=== PATIENT | female | born 1960 | race Caucasian/White ===

== ENCOUNTER 2016-08-20 11:31 | Day surgery (SDC) | payer BC ==
[~2016-08-20] VITALS: Ht 170.2 cm; Wt 154.5 kg
[~2016-08-20 11:31] MED LIST: BIOTIN1000 MCG PO; EFFEXOR XR150 MG PO; GLUCOPHAGE1000 MG PO; LEVEMIR FL100 UNIT/1 SC; MELATONIN10 M4 SL; NOVOLOG PE100 UNITS/ SC; TYLENOL PM1 CAPLET PO; ZESTRIL20 MG PO; ZOCOR40 MG PO
[2016-08-20 12:06] VITALS: BP 184/89
[2016-08-20 12:22] LABS: POINT-OF-CARE METER ID UU14174212
[2016-08-20 15:29] LABS: POINT-OF-CARE METER ID UU13113675
[2016-08-20 15:55] VITALS: BP 174/87
[2016-08-20 16:19] VITALS: BP 183/89
== END 2016-08-20 16:22 | disposition home or self-care (01) ==
LOC: SDC 11:31
PROVIDERS: Ophthalmology Retina Specialist
PROC: 3E0C3GC Introduction of Other Therapeutic Substance into Eye, Percutaneous Approach (ICD-10-PCS; principal; 2016-08-20)
PROC: 08B53ZZ Excision of Left Vitreous, Percutaneous Approach (ICD-10-PCS; principal; 2016-08-20)
DX: H43.12 Vitreous hemorrhage, left eye (principal); E11.3592 Type 2 diabetes mellitus with proliferative diabetic retinopathy without macular edema, left eye; I10 Essential (primary) hypertension; E78.5 Hyperlipidemia, unspecified; E11.40 Type 2 diabetes mellitus with diabetic neuropathy, unspecified; R01.1 Cardiac murmur, unspecified; Z79.4 Long term (current) use of insulin; Z88.5 Allergy status to narcotic agent; Z88.6 Allergy status to analgesic agent
CPT/HCPCS: 82948; J0690; J1100